=== PATIENT | female | born 1950 | race Caucasian/White ===

== ENCOUNTER 2018-12-01 08:51 | Day surgery (SDC) | payer MEDICARE, OTHER ==
[~2018-12-01 08:51] MED LIST: Angeliq 0.5 MG1 EACH PO; CENTRUM SILVER1 EAC2 PO; DICL25ER; DICMIS50EC; LEVSOD125 PO; NIFE30ER PO; OCUVITE EYE +1 EACH PO; Omeprazole20 M1 PO; VITAMIN D35000 UNIT PO
[2018-12-03 12:58] LABS: Performing Lab SYMBIODX
== END 2018-12-01 22:37 | disposition home or self-care (01) ==
LOC: MOI US 08:51
PROVIDERS: Nurse Practitioner Adult Health
DX: C50.912 Malignant neoplasm of unspecified site of left female breast (principal); Z17.1 Estrogen receptor negative status [ER-]
CPT/HCPCS: 19083; 77065; 88305; 88360; 88374; A4648

== ENCOUNTER → 2019-03-17 | Outpatient (CLI) | payer MEDICARE, OTHER | END | disposition home or self-care (01) | LOC: LAB SHORT 18:27 → LAB 18:27 | DX: L08.9 Local infection of the skin and subcutaneous tissue, unspecified (principal) | CPT/HCPCS: 87070; 87205 ==